=== PATIENT | female | born 1985 | race Caucasian/White ===

== ENCOUNTER 2018-04-20 22:11 | Emergency (ER) | payer MEDICAID ==
[~2018-04-20] VITALS: Ht 154.9 cm; Wt 82.0 kg
[~2018-04-20 22:11] MED LIST: NO HOME MEDS; ONDA8TAB6 PO
[2018-04-20 22:58] LABS: BASOPHILS % (AUTO) 0.2 % (0-1); EOSINOPHILS # (AUTO) 0.3 X10'3 (0-0.9); HEMOGLOBIN 14.5 g/dl (12.0-16.0); LYMPHOCYTES # (AUTO) 3.3 X10'3 (1.1-4.8); LYMPHOCYTES % (AUTO) 24.4 % (21-51); MEAN CORPUSCULAR HEMOGLOBIN 33.4 PG (27.0-31.0); MEAN CORPUSCULAR HGB CONC 35.3 % (33.0-36.5); MEAN CORPUSCULAR VOLUME 94.7 FL (78-98); MEAN PLATELET VOLUME 8.6 FL (7.4-10.4); MONOCYTES # (AUTO) 0.7 X10'3 (0-0.9); MONOCYTES % (AUTO) 5.5 % (2-12); NEUTROPHILS # (AUTO) 9.2 X10'3 (1.8-7.7); NEUTROPHILS % (AUTO) 67.9 % (42-75); PLATELET COUNT 288 X10'3 (140-440); RED BLOOD COUNT 4.33 X10'6 (4.20-5.60); RED CELL DISTRIBUTION WIDTH 12.2 % (11.5-14.5); WHITE BLOOD COUNT 13.6 X10'3 (4.5-11.0)
[2018-04-20 23:00] LABS: COLOR,URINE YELLOW (Yellow); GLUCOSE, URINE NEGATIVE (Neg); KETONES,URINE TRACE mg/dl (Neg); LEUKOCYTE ESTERASE ,URINE TRACE (Neg); NITRITES, URINE NEGATIVE (Neg); OCCULT BLOOD,URINE LARGE (Neg); PH,URINE 5.5 (4.8-8.0); PROTEIN,URINE NEGATIVE (Neg); UROBILINOGEN,URINE 0.2 E.U/dL (0.2-1.0)
[2018-04-20 23:01] LABS: URINE HCG NEGATIVE (NEG)
[2018-04-20 23:02] LABS: CLARITY,URINE SLIGHTLY CLOUDY (Clear); UA COLLECTION TYPE CLN CATCH MIDSTREAM
[2018-04-20 23:05] LABS: BACTERIA,URINE FEW /HPF (Neg); RBC,URINE 20-50 /HPF (0-2); SQUAMOUS EPITHELIAL CELL,UR FEW /LPF (FEW); WBC,URINE 0-4 /HPF (0-4)
[2018-04-20 23:08] LABS: PROTHROMBIN TIME 10.4 SECONDS (9.0-12.0)
[2018-04-20 23:10] VITALS: BP 134/74
[2018-04-20 23:11] LABS: ALANINE AMINOTRANSFERASE 18 U/L (12-78); ALBUMIN/GLOBULIN RATIO 1.1 (1.1-1.5); ALKALINE PHOSPHATASE 56 IU/L (46-116); ANION GAP 7 (8-16); ASPARTATE AMINO TRANSFERASE 11 U/L (10-37); BILIRUBIN,TOTAL 0.3 MG/DL (0.1-1.0); BLOOD UREA NITROGEN 12 MG/DL (7-18); BUN/CREATININE RATIO 12.5 (6.6-38.0); CALCIUM 8.6 MG/DL (8.5-10.1); CHLORIDE 110 MMOL/L (99-107); CREATININE 0.96 MG/DL (0.40-0.90); GLUCOSE 101 MG/DL (70-104); POTASSIUM 3.6 MMOL/L (3.5-5.1); SODIUM 144 MMOL/L (135-145); TOTAL CARBON DIOXIDE 26.7 MMOL/L (24-32); TOTAL PROTEIN 7.5 G/DL (6.4-8.2); eGFR 67 ML/MIN
== END 2018-04-21 00:12 | disposition left against medical advice (07) ==
LOC: ER 22:12
DX: R10.9 Unspecified abdominal pain (principal); Z53.21 Procedure and treatment not carried out due to patient leaving prior to being seen by health care provider
CPT/HCPCS: 36415; 80053; 81001; 81025; 85025; 85610; 87088; 99281

== ENCOUNTER 2018-06-01 17:45 | Emergency (ER) | payer OTHER, MEDICAID ==
[~2018-06-01] VITALS: Ht 152.4 cm; Wt 80.5 kg
[2018-06-01 17:53] VITALS: BP 128/82
[2018-06-01] MEDS ORDERED: ketorolac tromethamine 15mg/ml inj. IM ONE (20:25)
[2018-06-01] MEDS ORDERED: CYCL-1 PO (20:26)
== END 2018-06-01 20:38 | disposition home or self-care (01) ==
LOC: ER 17:45
DX: M54.2 Cervicalgia (principal); R51 Headache; R11.0 Nausea; Z79.899 Other long term (current) drug therapy
CPT/HCPCS: 96372; 99283; J1885

== ENCOUNTER 2019-07-21 19:48 | Emergency (ER) | payer MEDICAID ==
[~2019-07-21] VITALS: Ht 154.9 cm; Wt 86.4 kg
[~2019-07-21 19:48] MED LIST changes: +CYCL-1 PO
[2019-07-21 20:23] LABS: URINE HCG NEGATIVE (NEG)
[2019-07-21 20:26] LABS: CLARITY,URINE CLOUDY (Clear); COLOR,URINE YELLOW (Yellow); GLUCOSE, URINE NEGATIVE (Neg); KETONES,URINE NEGATIVE (Neg); LEUKOCYTE ESTERASE ,URINE SMALL (Neg); NITRITES, URINE NEGATIVE (Neg); OCCULT BLOOD,URINE NEGATIVE (Neg); PH,URINE 6.5 (4.8-8.0); PROTEIN,URINE NEGATIVE (Neg)
[2019-07-21 20:27] LABS: UA COLLECTION TYPE CLN CATCH MIDSTREAM
[2019-07-21 20:39] LABS: BACTERIA,URINE 3+ /HPF (Neg); MUCUS STRANDS NONE SEEN /LPF (Neg); RBC,URINE NONE SEEN /HPF (0-2); SQUAMOUS EPITHELIAL CELL,UR MANY /LPF (FEW); WBC,URINE 0-4 /HPF (0-4)
[2019-07-21] MEDS ORDERED: CEPH500C5 PO (20:52)
[2019-07-21] MEDS ORDERED: cephalexin 250mg capsule PO ONE (20:55)
[2019-07-21 21:16] VITALS: BP 124/73
== END 2019-07-21 21:19 | disposition home or self-care (01) ==
LOC: ER 19:49
DX: J04.0 Acute laryngitis (principal); N39.0 Urinary tract infection, site not specified; M54.9 Dorsalgia, unspecified; F32.9 Major depressive disorder, single episode, unspecified; F17.210 Nicotine dependence, cigarettes, uncomplicated; Z88.8 Allergy status to other drugs, medicaments and biological substances; Z79.899 Other long term (current) drug therapy
CPT/HCPCS: 81001; 81025; 87081; 87880; 99283

== ENCOUNTER → 2019-10-12 | Emergency (ER) | payer MEDICAID ==
[~2019-10-12] VITALS: Ht 154.9 cm; Wt 80.0 kg
[~2019-10-12] MED LIST changes: +CEPH500C5 PO
[2019-10-12 17:42] VITALS: BP 117/49
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
== END | disposition home or self-care (01) ==
LOC: EEVIPCON 15:31 → ER 15:31
DX: S00.03XA Contusion of scalp, initial encounter (principal); R42 Dizziness and giddiness; M54.5 Low back pain; F32.9 Major depressive disorder, single episode, unspecified; Z88.6 Allergy status to analgesic agent; Z79.899 Other long term (current) drug therapy; Y04.0XXA Assault by unarmed brawl or fight, initial encounter; Y93.89 Activity, other specified; Y92.89 Other specified places as the place of occurrence of the external cause; Y99.9 Unspecified external cause status
CPT/HCPCS: 70450; 93005; 99284

== ENCOUNTER 2019-11-14 19:54 | Emergency (ER) | payer MEDICAID ==
[~2019-11-14] VITALS: Ht 152.4 cm; Wt 95.0 kg
[2019-11-14 20:14] VITALS: BP 102/50
[2019-11-14] MEDS ORDERED: HYDROcodone/acetaminophen 10/325mg tab PO STA (20:17)
[2019-11-14] MEDS ORDERED: ketorolac trometh inj. 60 MG/2 ML VIAL IM ONE (21:15)
[2019-11-14] MEDS ORDERED: HYDR-3965 PO (21:18)
== END 2019-11-14 22:33 | disposition home or self-care (01) ==
LOC: ER 19:54
DX: S82.52XA Displaced fracture of medial malleolus of left tibia, initial encounter for closed fracture (principal); S82.832A Other fracture of upper and lower end of left fibula, initial encounter for closed fracture; F32.9 Major depressive disorder, single episode, unspecified; Z88.8 Allergy status to other drugs, medicaments and biological substances; Z79.899 Other long term (current) drug therapy; X50.1XXA Overexertion from prolonged static or awkward postures, initial encounter; Y93.89 Activity, other specified; Y92.89 Other specified places as the place of occurrence of the external cause; Y99.8 Other external cause status
CPT/HCPCS: 29515; 73610; 96372; 99283; J1885

== ENCOUNTER 2019-11-15 20:46 | Emergency (ER) | payer MEDICAID ==
[~2019-11-15] VITALS: Ht 154.9 cm; Wt 95.0 kg
[~2019-11-15 20:46] MED LIST changes: +HYDR-3965 PO
[2019-11-15 20:47] VITALS: BP 130/91
[2019-11-15] MEDS ORDERED: ondansetron 4mg rapidly disintigrating tab PO ONE (21:45)
[2019-11-15] MEDS ORDERED: HYDROcodone/acetaminophen 10/325mg tab PO ONE (21:45)
== END 2019-11-15 22:39 | disposition home or self-care (01) ==
LOC: ER 20:47
DX: S82.842A Displaced bimalleolar fracture of left lower leg, initial encounter for closed fracture (principal); R20.0 Anesthesia of skin; R20.2 Paresthesia of skin; F32.9 Major depressive disorder, single episode, unspecified; Z47.89 Encounter for other orthopedic aftercare; Z88.8 Allergy status to other drugs, medicaments and biological substances; Z79.899 Other long term (current) drug therapy; X50.1XXA Overexertion from prolonged static or awkward postures, initial encounter; Y93.89 Activity, other specified; Y92.89 Other specified places as the place of occurrence of the external cause; Y99.8 Other external cause status
CPT/HCPCS: 29515; 99283

== ENCOUNTER 2020-03-14 10:04 | Emergency (ER) | payer MEDICAID ==
[~2020-03-14] VITALS: Ht 154.9 cm; Wt 90.9 kg
[~2020-03-14 10:04] MED LIST changes: -HYDR-3965 PO
[2020-03-14 10:56] LABS: CLARITY,URINE CLEAR (Clear); COLOR,URINE AMBER (Yellow); GLUCOSE, URINE NEGATIVE (Neg); KETONES,URINE TRACE mg/dl (Neg); LEUKOCYTE ESTERASE ,URINE NEGATIVE (Neg); NITRITES, URINE NEGATIVE (Neg); OCCULT BLOOD,URINE NEGATIVE (Neg); PH,URINE 6.5 (4.8-8.0); PROTEIN,URINE TRACE mg/dl (Neg); UROBILINOGEN,URINE 0.2 E.U/dL (0.2-1.0)
[2020-03-14 10:57] LABS: URINE HCG NEGATIVE (NEG)
[2020-03-14 10:59] LABS: UA COLLECTION TYPE CLN CATCH MIDSTREAM
[2020-03-14 11:00] LABS: BACTERIA,URINE FEW /HPF (Neg); MUCUS STRANDS NONE SEEN /LPF (Neg); RBC,URINE 0-2 /HPF (0-2); SQUAMOUS EPITHELIAL CELL,UR MANY /LPF (FEW); WBC,URINE 0-4 /HPF (0-4)
[2020-03-14 11:04] LABS: URINE AMPHETAMINE SCREEN POSITIVE (Neg); URINE BARBITUATE SCREEN NEGATIVE (Neg); URINE BENZODIAZEPINES SCREEN NEGATIVE (Neg); URINE CANNABINOID SCREEN NEGATIVE (Neg); URINE COCAINE SCREEN NEGATIVE (Neg); URINE METHADONE SCREEN NEGATIVE (Neg); URINE OPIATE SCREEN POSITIVE (Neg); URINE PHENCYCLIDINE SCREEN NEGATIVE (Neg)
[2020-03-14 11:16] LABS: BASOPHILS % (AUTO) 0.3 % (0-1); EOSINOPHILS % (AUTO) 0.1 % (0-6); HEMOGLOBIN 14.6 g/dl (12.0-16.0); LYMPHOCYTES % (AUTO) 14.4 % (21-51); MEAN CORPUSCULAR HEMOGLOBIN 32.7 PG (27.0-31.0); MEAN CORPUSCULAR HGB CONC 34.8 g/dL (33.0-36.5); MEAN CORPUSCULAR VOLUME 93.9 FL (78-98); MEAN PLATELET VOLUME 8.5 FL (7.4-10.4); MONOCYTES # (AUTO) 0.4 X10'3 (0-0.9); MONOCYTES % (AUTO) 3.3 % (2-12); NEUTROPHILS # (AUTO) 11.2 X10'3 (1.8-7.7); NEUTROPHILS % (AUTO) 81.9 % (42-75); PLATELET COUNT 341 X10'3 (140-440); RED BLOOD COUNT 4.47 X10'6 (4.20-5.60); RED CELL DISTRIBUTION WIDTH 12.3 % (11.5-14.5); WHITE BLOOD COUNT 13.7 X10'3 (4.5-11.0)
[2020-03-14 11:32] LABS: ALANINE AMINOTRANSFERASE 21 U/L (12-78); ALBUMIN 3.9 G/DL (3.4-5.0); ALBUMIN/GLOBULIN RATIO 1.1 (1.1-1.5); ALKALINE PHOSPHATASE 67 IU/L (46-116); ANION GAP 8 (8-16); ASPARTATE AMINO TRANSFERASE 12 U/L (10-37); BILIRUBIN,TOTAL 0.6 MG/DL (0.1-1.0); BLOOD UREA NITROGEN 8 MG/DL (7-18); BUN/CREATININE RATIO 9.2 (6.6-38.0); CALCIUM 8.8 MG/DL (8.5-10.1); CHLORIDE 107 MMOL/L (99-107); CREATININE 0.87 MG/DL (0.40-0.90); GLUCOSE 119 MG/DL (70-104); POTASSIUM 3.2 MMOL/L (3.5-5.1); SODIUM 142 MMOL/L (135-145); TOTAL PROTEIN 7.4 G/DL (6.4-8.2); eGFR 74 ML/MIN
[2020-03-14 11:40] LABS: ACETAMINOPHEN < 2.0 UG/ML (10-30); ETHANOL < 0.010 GM/DL (0.0-0.010)
--- NOTE | 2020-03-14 12:37 | NUR ---
Spoke with Chasidy at [facility], she states that we have done all of the testing needed and she is medically cleared after 4 hours of arrival if everything continues to look good.
--- NOTE | 2020-03-14 13:08 | NUR ---
packet faxed to [facility]
[2020-03-14] MEDS ORDERED: FLUO20CA39 PO (13:21)
[2020-03-14] MEDS ORDERED: METH-360 PO (13:25)
[2020-03-14] MEDS ORDERED: HYDR-4353 PO (13:25)
[2020-03-14] MEDS ORDERED: AMPH10CA3 PO (13:25)
[2020-03-14] MEDS ORDERED: LAMO150T2 PO (13:25)
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
--- NOTE | 2020-03-14 14:06 | NUR ---
Mental Health Worker at bedside conducting Pt interview/assessment at this time.
--- NOTE | 2020-03-14 14:20 | NUR ---
Mental Health completed interview/assessment. Pt to be placed on [id number].
--- NOTE | 2020-03-14 16:00 | NUR ---
Pt is sleeping on right side. Respirations even and unlabored.
--- NOTE | 2020-03-14 17:19 | NUR ---
relieving RN for break, gave report to staff at [facility], they will call back if they accept pt
--- NOTE | 2020-03-14 18:30 | NUR ---
assumed care pateint lying supine. Resp even unlabored no signs of distress
--- NOTE | 2020-03-14 18:30 | NUR ---
Note blu in EDM - 03/14/20 at 1922 by BR[facility]FORD testing limits walking into another patients area. Linits set on privacy, patient walked over to patients area 2 additional times was guided backed to her bed area with linit setting. Patient shown her bed number above and reminded an additional 3 times. Patient would like to talk to her sister and is looking for additional pillows. Unable to focus. Walking around wants a bedroom to change her clothes complaining of feeling trapped. States she is mad as hell and feels trapped. Went and sat down said Ya and came over and asjed if we heard that the voices are calling her name .
[2020-03-14] MEDS: lamoTRIgine 100mg tablet PO SCH (19:49)
--- NOTE | 2020-03-14 20:30 | NUR ---
Offered HS care and snack. Cooperative, no complaints at this time answers questions no eye contact.
--- NOTE | 2020-03-14 20:38 | NUR ---
relieving RN for break, pt is sleeping, resp even and unlabored
--- NOTE | 2020-03-14 20:46 | NUR ---
gave nurse to nurse report to RN with [facility], they will call back if they accept pt
[2020-03-14] MEDS ORDERED: potassium Cl 20 mEq SR tablet PO STA (21:00)
--- NOTE | 2020-03-14 21:01 | NUR ---
pt has been accepted at [facility], accepting provider is Dr Khan, pt is leaving at 0915 03/15/20, Dr Johnson gave verbal order for Kdur 40 mEq PO x1 now (per request of provider at [facility] to replace K+)
--- NOTE | 2020-03-14 21:30 | NUR ---
lying on left side, eyes closed. Eupneic respirations.
--- NOTE | 2020-03-14 22:30 | NUR ---
Sleeping had blanket over head removed from head patient began snoring.
--- NOTE | 2020-03-14 23:30 | NUR ---
sleeping no sign of distress. Patient visible to nurses station.
--- NOTE | 2020-03-15 00:30 | NUR ---
Fresh ice water to bedside. Sleeping, eupneic respirations no signs of distress.
--- NOTE | 2020-03-15 01:15 | NUR ---
Eupneic respirations , no signs of distess.
--- NOTE | 2020-03-15 02:15 | NUR ---
Lying on left side. No signs of distress.
--- NOTE | 2020-03-15 03:25 | NUR ---
Intermittant dry cough. Lying on right side. No signs of distress
--- NOTE | 2020-03-15 04:00 | NUR ---
Sleeping, no needs at this time, no apparrent distress. Respirations even unlabored.
--- NOTE | 2020-03-15 05:04 | NUR ---
Sleeping, no needs at this time, no apparrent distress. Snoring intermittantly.
--- NOTE | 2020-03-15 06:00 | NUR ---
Sleeping, no needs at this time, no apparrent distress. Respirations even unlabored.
[2020-03-15 06:27] VITALS: BP 111/54
--- NOTE | 2020-03-15 07:20 | NUR ---
Jason Larios called to check on patient. Given update with patient's permission
[2020-03-15] MEDS ORDERED: FLUoxetine 20mg capsule PO SCH (08:00)
[2020-03-15] MEDS: lamoTRIgine 100mg tablet PO SCH (08:09)
== END 2020-03-15 09:30 ==
LOC: ER 10:05
DX: R45.851 Suicidal ideations (principal); F41.9 Anxiety disorder, unspecified; F32.9 Major depressive disorder, single episode, unspecified; R51 Headache; Z88.8 Allergy status to other drugs, medicaments and biological substances; Z79.899 Other long term (current) drug therapy
CPT/HCPCS: 36415; 80053; 80305; 80320; 80329; 81001; 81025; 84443; 85025; 93005; 99285

== ENCOUNTER 2020-04-17 23:04 | Emergency (ER) | payer MEDICAID ==
[~2020-04-17] VITALS: Ht 154.9 cm; Wt 100.0 kg
[~2020-04-17 23:04] MED LIST changes: +AMPH10CA3 PO; -CEPH500C5 PO; +FLUO20CA39 PO; +HYDR-4353 PO; +LAMO150T2 PO; +METH-360 PO; -NO HOME MEDS; -ONDA8TAB6 PO
[2020-04-18 00:45] VITALS: BP 125/69
== END 2020-04-18 00:46 | disposition home or self-care (01) ==
LOC: ER 23:05
DX: S93.401A Sprain of unspecified ligament of right ankle, initial encounter (principal); F41.9 Anxiety disorder, unspecified; F32.9 Major depressive disorder, single episode, unspecified; F17.210 Nicotine dependence, cigarettes, uncomplicated; Z98.890 Other specified postprocedural states; Z88.8 Allergy status to other drugs, medicaments and biological substances; Z79.899 Other long term (current) drug therapy; W18.31XA Fall on same level due to stepping on an object, initial encounter; Y93.01 Activity, walking, marching and hiking; Y92.89 Other specified places as the place of occurrence of the external cause; Y99.8 Other external cause status
CPT/HCPCS: 73610; 99283

== ENCOUNTER 2020-08-31 23:37 | Emergency (ER) | payer MEDICAID ==
[~2020-08-31] VITALS: Ht 154.9 cm; Wt 106.0 kg
[2020-08-31 23:46] VITALS: BP 143/84
--- NOTE | 2020-08-31 23:51 | NUR ---
civil design technician at bedside
[2020-09-01] MEDS ORDERED: acetaminophen 325mg tablet PO ONE (00:10)
== END 2020-09-01 00:40 | disposition home or self-care (01) ==
LOC: ER 23:37
DX: S60.212A Contusion of left wrist, initial encounter (principal); F41.9 Anxiety disorder, unspecified; F32.9 Major depressive disorder, single episode, unspecified; Z98.890 Other specified postprocedural states; Z88.8 Allergy status to other drugs, medicaments and biological substances; Z79.899 Other long term (current) drug therapy; X58.XXXA Exposure to other specified factors, initial encounter; Y93.89 Activity, other specified; Y92.89 Other specified places as the place of occurrence of the external cause; Y99.8 Other external cause status
CPT/HCPCS: 29125; 73130; 99283

== ENCOUNTER 2021-07-24 20:35 | Emergency (ER) | payer MEDICAID ==
[~2021-07-24] VITALS: Ht 154.9 cm; Wt 93.2 kg
[2021-07-24 22:02] VITALS: BP 133/73
[2021-07-24] MEDS ORDERED: CEFD300C3 PO (23:44)
[2021-07-25 00:52] LABS: CLARITY,URINE SLIGHTLY CLOUDY (Clear); COLOR,URINE YELLOW (Yellow); GLUCOSE, URINE NEGATIVE (Neg); KETONES,URINE NEGATIVE (Neg); LEUKOCYTE ESTERASE ,URINE TRACE (Neg); NITRITES, URINE NEGATIVE (Neg); OCCULT BLOOD,URINE MODERATE (Neg); PH,URINE 5.5 (4.8-8.0); PROTEIN,URINE NEGATIVE (Neg); UROBILINOGEN,URINE 0.2 E.U/dL (0.2-1.0)
[2021-07-25 00:53] LABS: UA COLLECTION TYPE CLN CATCH MIDSTREAM
[2021-07-25 01:14] LABS: RBC,URINE 20-50 /HPF (0-2)
[2021-07-25 01:15] LABS: BACTERIA,URINE FEW /HPF (Neg)
[2021-07-25 01:16] LABS: MUCUS STRANDS FEW /LPF (Neg); SQUAMOUS EPITHELIAL CELL,UR MODERATE /LPF (FEW)
== END 2021-07-25 02:09 | disposition home or self-care (01) ==
LOC: ER 20:35
DX: N39.0 Urinary tract infection, site not specified (principal); Z87.440 Personal history of urinary (tract) infections; Z79.899 Other long term (current) drug therapy
CPT/HCPCS: 81001; 87088; 99283

== ENCOUNTER 2022-03-08 14:22 | Emergency (ER) | payer MEDICAID ==
[~2022-03-08] VITALS: Ht 154.9 cm; Wt 90.0 kg
[2022-03-08 14:23] VITALS: BP 149/97
[2022-03-08] MEDS ORDERED: ketorolac tromethamine 15mg/ml inj. IM ONE (15:15)
[2022-03-08] MEDS ORDERED: ondansetron 4mg rapidly disintigrating tab PO ONE (15:15)
[2022-03-08] MEDS ORDERED: HYDROcodone/acetaminophen 5mg/325mg tablet PO ONE (15:15)
[2022-03-08] MEDS ORDERED: ONDA4TAB12 PO (15:47)
[2022-03-08] MEDS ORDERED: HYDR-3965 PO (15:47)
== END 2022-03-08 16:00 | disposition home or self-care (01) ==
LOC: ER 14:23
DX: M25.572 Pain in left ankle and joints of left foot (principal); Z87.81 Personal history of (healed) traumatic fracture; Z88.8 Allergy status to other drugs, medicaments and biological substances; Z79.899 Other long term (current) drug therapy
CPT/HCPCS: 73610; 96372; 99283; J1885